=== PATIENT | female | born 1975 | race Two or more races ===

== ENCOUNTER 2016-09-05 22:17 | Emergency (ER) | payer OTHER ==
[~2016-09-05] VITALS: Ht 162.6 cm; Wt 72.6 kg
[2016-09-05 22:29] VITALS: BP 130/68
[2016-09-05 23:12] LABS: BASO % 0 % (0-3); BILIRUBIN,URINE NEGATIVE (NEG); EOS % 2 % (0-3); GLUCOSE,URINE NEGATIVE (NEG); HEMATOCRIT 29.8 % (36.0-47.0); HEMOGLOBIN 9.8 g/dL (12.0-15.5); LYMPH # 2.8 x10^3/uL (1.0-4.8); LYMPH % 27 % (24-48); MEAN CORPUSCULAR HEMOGLOBIN 23 pg (25-35); MEAN CORPUSCULAR HGB CONC 33 g/dL (31-37); MEAN CORPUSCULAR VOLUME 71 fL (79-100); MONO % 9 % (0-9); NEUT % 62 % (31-73); NITRITE,URINE NEGATIVE (NEG); PLATELET COUNT 285 x10^3/uL (140-400); PROTEIN,URINE NEGATIVE (NEG-TRACE); RED BLOOD COUNT 4.19 x10^6/uL (3.50-5.40); RED CELL DISTRIBUTION WIDTH 17.3 % (11.5-14.5); UROBILINOGEN,URINE 0.2 mg/dL (0.2 mg/dL); WHITE BLOOD COUNT 10.1 x10^3/uL (4.0-11.0)
[2016-09-05] MEDS ORDERED: ONDANSETRON PF 4 MG/2 ML VIAL. IV ONE (23:15)
[2016-09-05] MEDS ORDERED: KETOROLAC TROMETHAMINE 30 MG/ML SYRINGE. IV ONE (23:15)
[2016-09-05 23:17] LABS: BACTERIA,URINE FEW /HPF (0-FEW); RBC,URINE 0 /HPF (0-2); SQUAMOUS EPITHELIAL CELL,UR MOD /LPF; WBC,URINE RARE /HPF (0-4)
[2016-09-05 23:22] LABS: CALCIUM 8.5 mg/dL (8.5-10.1); CREATININE 0.6 mg/dL (0.6-1.0); GFR 110.7; POTASSIUM 3.2 mmol/L (3.5-5.1)
[2016-09-05 23:33] LABS: ANISOCYTOSIS SLIGHT; HYPOCHROMIA SLIGHT; MICROCYTOSIS MARKED; PLT ESTIMATE ADEQUATE (ADEQUATE); POLYCHROMASIA SLIGHT
--- NOTE | 2016-09-06 00:26 | RAD ---
CT abdomen and pelvis without contrast: Reason for examination: Left flank pain tonight. Helical images were obtained through the abdomen and pelvis with no intravenous or oral contrast administered. Reconstruction was performed in sagittal and coronal planes. Exposure: One or more of the following individualized dose reduction techniques were used for this examination: 1. Automated exposure control. 2. Adjustment of the mA and/or kV according to patient size. 3. Use of iterative reconstruction technique. The lung bases are clear. The heart size is normal with no pericardial effusion seen. No abnormalities seen in the liver, spleen, adrenal glands or pancreas. The gallbladder is contracted but no cholelith are identified. There is a large amount of debris in the stomach in the patient was apparently not NPO. The abdominal aorta and inferior vena cava show no acute abnormalities. No abnormalities seen in the appendix. The intestinal tract shows no abnormally dilated loops of bowel or thickened bowel franz. There is no evidence of diverticulosis or diverticulitis. The kidneys show no renal masses, renal calculi, hydronephrosis or evidence of obstructive uropathy. Distal ureters however are not optimally visualized due to crowding of the bladder and pelvic structures and there are multiple calcifications in the pelvis. These probably however represent phleboliths. Clinical correlation and followup is recommended. No focal abnormalities seen in the uterus or bladder. No adnexal masses or free fluid are evident. No acute bony abnormalities are evident. Impression: Contracted gallbladder however the patient does not appear to be have been NPO. No cholelith are identified. No renal calculi or hydronephrosis evident. The ureters however cannot be followed all way to the bladder due to crowd in of the pelvic structures and there are calcifications in the pelvis. These probably represent phleboliths but recommend clinical correlation and followup. Electronically signed by: Verito Wheat MD (Sep 06, 2016 00:25:04)
[2016-09-06] MEDS ORDERED: IBUP-1060 PO (01:28)
--- NOTE | 2016-09-06 01:28 | PHYS DOC ---
Past Medical History Past Medical History: Anemia, Anxiety, Migraines Past Surgical History: Tubal ligation Alcohol Use: Rarely Drug Use: None Adult General Chief Complaint Chief Complaint: FLANK PAIN HPI HPI This is a 41-year-old female who presents with some left-sided flank pain that does radiate somewhat into her left groin area for the last 1-2 days. She denies any blood in her urine. She denies any nausea or vomiting. She has history of a tubal ligation but no other known abdominal surgery. She rates her pain a 6 out of 10 on the pain scale. She is speaking in complete sentences and in no acute distress. Review of Systems Review of Systems Constitutional: Denies fever or chills [] Eyes: Denies change in visual acuity, redness, or eye pain [] HENT: Denies nasal congestion or sore throat [] Respiratory: Denies cough or shortness of breath [] Cardiovascular: No additional information not addressed in HPI [] GI: Has abdominal pain, denies nausea, denies vomiting, denies bloody stools or diarrhea [] : Denies dysuria or hematuria [] Musculoskeletal: Denies back pain or joint pain [] Integument: Denies rash or skin lesions [] Neurologic: Denies headache, focal weakness or sensory changes [] Endocrine: Denies polyuria or polydipsia [] Current Medications Current Medications Current Medications Medications (Trade) Dose Ordered Sig/Zenobia Start Time Stop Time Status Last Admin Dose Admin Ketorolac Tromethamine (Toradol) 30 mg 1X ONCE 09/05/16 23:15 09/05/16 23:16 DC 09/05/16 23:37 30 MG Ondansetron HCl (Zofran) 4 mg 1X ONCE 09/05/16 23:15 09/05/16 23:16 DC 09/05/16 23:37 4 MG Allergies Allergies Allergies Coded Allergies Type Severity Reaction Last Updated Verified No Known Drug Allergies 05/02/15 No Physical Exam Physical Exam Constitutional: Well developed, well nourished, no acute distress, non-toxic appearance. [] HENT: Normocephalic, atraumatic, bilateral external ears normal, oropharynx moist, no oral exudates, nose normal. [] Eyes: PERRLA, EOMI, conjunctiva normal, no discharge. [] Neck: Normal range of motion, no tenderness, supple, no stridor. [] Cardiovascular:Heart rate regular rhythm, no murmur [] Lungs & Thorax: Bilateral breath sounds clear to auscultation [] Abdomen: Bowel sounds normal, soft, mild LLQ tenderness, no masses, no pulsatile masses. [] Skin: Warm, dry, no erythema, no rash. [] Back: No tenderness, left CVA tenderness. [] Extremities: No tenderness, no cyanosis, no clubbing, ROM intact, no edema. [] Neurologic: Alert and oriented X 3, normal motor function, normal sensory function, no focal deficits noted. [] Psychologic: Affect normal, judgement normal, mood normal. [] Current Patient Data Vital Signs Vital Signs Date Time Temp Pulse Resp B/P Pulse Ox O2 Delivery O2 Flow Rate FiO2 09/05/16 22:29 98.0 82 20 130/68 99 Room Air 98.0 Lab Values Laboratory Tests Test 09/05/16 22:07 09/05/16 22:50 POC Urine HCG, Qualitative Hcg negative (Negative) White Blood Count 10.1x10^3/uL (4.0-11.0) Red Blood Count 4.19x10^6/uL (3.50-5.40) Hemoglobin 9.8g/dL (12.0-15.5) L Hematocrit 29.8% (36.0-47.0) L Mean Corpuscular Volume 71fL (79-100) L Mean Corpuscular Hemoglobin 23pg (25-35) L Mean Corpuscular Hemoglobin Concent 33g/dL (31-37) Red Cell Distribution Width 17.3% (11.5-14.5) H Platelet Count 285x10^3/uL (140-400) Neutrophils (%) (Auto) 62% (31-73) Lymphocytes (%) (Auto) 27% (24-48) Monocytes (%) (Auto) 9% (0-9) Eosinophils (%) (Auto) 2% (0-3) Basophils (%) (Auto) 0% (0-3) Neutrophils # (Auto) 6.2x10^3uL (1.8-7.7) Lymphocytes # (Auto) 2.8x10^3/uL (1.0-4.8) Monocytes # (Auto) 0.9x10^3/uL (0.0-1.1) Eosinophils # (Auto) 0.2x10^3/uL (0.0-0.7) Basophils # (Auto) 0.0x10^3/uL (0.0-0.2) Platelet Estimate Adequate (ADEQUATE) Polychromasia Slight Hypochromasia Slight Anisocytosis Slight Microcytosis Marked Urine Collection Type Unknown Urine Color Straw Urine Clarity Clear Urine pH 6.0 Urine Specific Loco 1.010 Urine Protein Negativemg/dL (NEG-TRACE) Urine Glucose (UA) Negativemg/dL (NEG) Urine Ketones (Stick) Negativemg/dL (NEG) Urine Blood Negative (NEG) Urine Nitrite Negative (NEG) Urine Bilirubin Negative (NEG) Urine Urobilinogen Dipstick 0.2mg/dL (0.2 mg/dL) Urine Leukocyte Esterase Negative (NEG) Urine RBC 0/HPF (0-2) Urine WBC Rare/HPF (0-4) Urine Squamous Epithelial Cells Mod/LPF Urine Bacteria Few/HPF (0-FEW) Sodium Level 139mmol/L (136-145) Potassium Level 3.2mmol/L (3.5-5.1) L Chloride Level 104mmol/L (98-107) Carbon Dioxide Level 27mmol/L (21-32) Anion Gap 8 (6-14) Blood Urea Nitrogen 13mg/dL (7-20) Creatinine 0.6mg/dL (0.6-1.0) Estimated GFR (Cockcroft-Gault) 110.7 Glucose Level 87mg/dL (70-99) Calcium Level 8.5mg/dL (8.5-10.1) Laboratory Tests 09/05/16 22:50 Laboratory Tests 09/05/16 22:50 EKG EKG [] Radiology/Procedures Radiology/Procedures CT abdomen and pelvis without contrast: Reason for examination: Left flank pain tonight. Helical images were obtained through the abdomen and pelvis with no intravenous or oral contrast administered. Reconstruction was performed in sagittal and coronal planes. Exposure: One or more of the following individualized dose reduction techniques were used for this examination: 1. Automated exposure control. 2. Adjustment of the mA and/or kV according to patient size. 3. Use of iterative reconstruction technique. The lung bases are clear. The heart size is normal with no pericardial effusion seen. No abnormalities seen in the liver, spleen, adrenal glands or pancreas. The gallbladder is contracted but no cholelith are identified. There is a large amount of debris in the stomach in the patient was apparently not NPO. The abdominal aorta and inferior vena cava show no acute abnormalities. No abnormalities seen in the appendix. The intestinal tract shows no abnormally dilated loops of bowel or thickened bowel franz. There is no evidence of diverticulosis or diverticulitis. The kidneys show no renal masses, renal calculi, hydronephrosis or evidence of obstructive uropathy. Distal ureters however are not optimally visualized due to crowding of the bladder and pelvic structures and there are multiple calcifications in the pelvis. These probably however represent phleboliths. Clinical correlation and followup is recommended. No focal abnormalities seen in the uterus or bladder. No adnexal masses or free fluid are evident. No acute bony abnormalities are evident. Impression: Contracted gallbladder however the patient does not appear to be have been NPO. No cholelith are identified. No renal calculi or hydronephrosis evident. The ureters however cannot be followed all way to the bladder due to crowd in of the pelvic structures and there are calcifications in the pelvis. These probably represent phleboliths but recommend clinical correlation and followup. Course & Med Decision Making Course & Med Decision Making Pertinent Labs and Imaging studies reviewed. (See chart for details) This 41-year-old female had some left-sided abdominal pain that resolved with an IV dose of Toradol. Her laboratory workup was unremarkable. Urinalysis did not demonstrate any signs of infection. CT of her abdomen and pelvis was also negative for any acute cause for her symptoms. Upon my final reassessment, she feels improved. I'll be discharging her home with Motrin only and close follow- up. I gave her strict instruction to return if she develops any worsening of her pain. Dragon Disclaimer Dragon Disclaimer This electronic medical record was generated, in whole or in part, using a voice recognition dictation system. Departure Departure Impression: Primary Impression: Abdominal pain Disposition: 01 HOME, SELF-CARE Admitting Physician: Other Condition: STABLE Referrals: NO PCP (PCP) Patient Instructions: Abdominal Pain Additional Instructions: Please take tylenol or motrin for your symptoms. Return to the ER if you develop any worsening of your pain or nausea. Follow up with your primary doctor in the next 2-3 days. Scripts Ibuprofen 800 Mg [id number] Mg PO PRN Q6HRS PRN INFLAMMATION #20 TAB Prov:HACKMAN,CRYS E DO 09/06/16 CRYS JARRETT DO Sep 06, 2016 01:28
== END 2016-09-06 01:33 | disposition home or self-care (01) ==
LOC: ER 22:17
DX: R10.9 Unspecified abdominal pain (principal); G43.909 Migraine, unspecified, not intractable, without status migrainosus; Z98.51 Tubal ligation status
CPT/HCPCS: 36415; 74176; 80048; 81001; 81025; 85007; 85027; 96374; 96375; 99285; J1885; J2405

== ENCOUNTER → 2017-05-05 | Outpatient (CLI) | payer OTHER ==
[~2017-05-05] MED LIST: IBUP-1060 PO
[2017-05-05 12:24] LABS: BASO % 0 % (0-3); EOS % 2 % (0-3); HEMATOCRIT 33.5 % (36.0-47.0); LYMPH # 2.2 x10^3/uL (1.0-4.8); LYMPH % 27 % (24-48); MEAN CORPUSCULAR HEMOGLOBIN 26 pg (25-35); MEAN CORPUSCULAR HGB CONC 33 g/dL (31-37); MEAN CORPUSCULAR VOLUME 79 fL (79-100); MONO % 10 % (0-9); NEUT % 62 % (31-73); PLATELET COUNT 265 x10^3/uL (140-400); RED BLOOD COUNT 4.27 x10^6/uL (3.50-5.40); RED CELL DISTRIBUTION WIDTH 16.5 % (11.5-14.5); WHITE BLOOD COUNT 8.2 x10^3/uL (4.0-11.0)
[2017-05-05 12:35] LABS: % SAT IRON 5 % (15-34); IRON,SERUM 22 ug/dL (50-170)
[2017-05-05 12:36] LABS: ALBUMIN 3.4 g/dL (3.4-5.0); ALBUMIN/GLOBULIN RATIO 0.8 (1.0-1.7); CREATININE 0.5 mg/dL (0.6-1.0); GFR 136.6; POTASSIUM 3.8 mmol/L (3.5-5.1); TOTAL BILIRUBIN 0.2 mg/dL (0.2-1.0); TOTAL PROTEIN 7.6 g/dL (6.4-8.2)
== END | disposition home or self-care (01) ==
LOC: LAB 11:57
PROVIDERS: ATTEND Psychiatry & Neurology Neurology
DX: G43.011 Migraine without aura, intractable, with status migrainosus (principal)
CPT/HCPCS: 36415; 80053; 83540; 83550; 85025; 85651

== ENCOUNTER → 2017-06-24 | Outpatient (CLI) | payer OTHER ==
[2017-06-24] MEDS: GADOBUTROL 7.5 MMOL/7.5 ML VIAL IV (11:17)
== END | disposition home or self-care (01) ==
LOC: MRI 09:53
DX: G43.011 Migraine without aura, intractable, with status migrainosus (principal)
CPT/HCPCS: 70553; A9585

== ENCOUNTER → 2017-08-25 | Outpatient (CLI) | payer OTHER | END | disposition home or self-care (01) | LOC: MAMMO 08:21 | DX: Z12.31 Encounter for screening mammogram for malignant neoplasm of breast (principal) | CPT/HCPCS: 77067 ==

== ENCOUNTER → 2021-10-28 | Outpatient (CLI) | payer MEDICAID ==
--- NOTE | 2021-10-29 07:47 | RAD ---
EXAM: BILATERAL DIGITAL SCREENING MAMMOGRAPHY. HISTORY: Routine mammographic screening. TECHNIQUE: Bilateral full field digital images were obtained in CC and MLO projections. Computer-aide d detection was applied. COMPARISON: 08/25/2017. COMPOSITION: C. The breasts are heterogeneously dense, which may obscure small masses. FINDINGS: There are no suspicious masses, microcalcifications or architectural distortion. The parenc hymal pattern is stable. Scattered calcifications are benign. BI-RADS CATEGORY 2: Benign. RECOMMENDATION: 1. Routine screening mammography in one year. If mammography demonstrates dense breast tissue (heterogenously dense or extremely dense, category C or D), which could hide abnormalities, and if other risk factors for breast cancer have been identifi ed, supplemental screening tests that may be suggested by the ordering physician may be of benefit. D ense breast tissue, in and of itself, is a relatively common condition. Therefore, this information i s not provided to cause undue concern, but rather to raise awareness and to promote discussion with t he referring physician regarding the presence of other risk factors, in addition to dense breast tiss ue. The results of this mammography examination is provided to the patient and referring physician. T he patient should contact their referring physician if any questions or concerns exist regarding this report. PQRS compliance statement - Patient information was entered into a reminder system with a target due date for the next mammogram. "Our facility is accredited by the [employer] Mammography [employer]." Electronically signed by: Sherly Leavitt MD (10/28/2021 1:47 PM) [id number]
== END ==
LOC: MAMMO 13:09
PROVIDERS: ATTEND Family Medicine
DX: Z12.31 Encounter for screening mammogram for malignant neoplasm of breast (principal)
CPT/HCPCS: 77067